=== PATIENT | female | born 1995 | race Caucasian/White ===

== ENCOUNTER 2022-06-16 21:26 | Emergency (ER) | payer MEDICAID ==
[~2022-06-16] VITALS: Ht 162.6 cm; Wt 94.0 kg
[2022-06-16 21:47] VITALS: BP 116/81
[2022-06-17] MEDS ORDERED: B25 MT (04:33)
[2022-06-17] MEDS ORDERED: DIPHENHYDRAMINE 25MG CAPSULE PO NR (04:45)
== END 2022-06-17 05:11 | disposition home or self-care (01) ==
LOC: ER 21:26
DX: T78.40XA Allergy, unspecified, initial encounter (principal); X58.XXXA Exposure to other specified factors, initial encounter; L50.9 Urticaria, unspecified
CPT/HCPCS: 99282; Q0163